=== PATIENT | female | born 1990 | race Caucasian/White ===

== ENCOUNTER 2024-07-13 09:15 | Emergency (ER) | payer OTHER ==
[~2024-07-13] VITALS: Ht 167.6 cm; Wt 83.9 kg
[2024-07-13 11:37] VITALS: BP 125/70; TEMP 98.6; O2SAT 100
== END 2024-07-13 11:38 | disposition home or self-care (01) ==
LOC: ER 09:15
DX: O26.892 Other specified pregnancy related conditions, second trimester (principal); M79.662 Pain in left lower leg; Z88.1 Allergy status to other antibiotic agents; Z3A.18 18 weeks gestation of pregnancy
CPT/HCPCS: 93971-TC